=== PATIENT | male | born 1980 | race Caucasian/White ===

== ENCOUNTER 2020-02-25 21:23 | Emergency (ER) | payer OTHER ==
[~2020-02-25] VITALS: Ht 172.7 cm; Wt 81.7 kg
== END 2020-02-25 22:46 | disposition home or self-care (01) ==
LOC: ER 21:23
DX: S61.511A Laceration without foreign body of right wrist, initial encounter (principal); W25.XXXA Contact with sharp glass, initial encounter; Y93.89 Activity, other specified
CPT/HCPCS: 12002; 99282-25